=== PATIENT | female | born 1975 ===

== ENCOUNTER 2017-04-22 18:24 | Emergency (ER) | payer OTHER ==
[2017-04-22 18:29] VITALS: BMI 21.8
[2017-04-22 18:30] VITALS: BP 145/87; RESP 18
[2017-04-22] MEDS ORDERED: DiphenhydrAMINE 50 mg/ml Inj IVP STA (18:40)
--- NOTE | 2017-04-22 20:49 | ED PDOC ---
Arrival/HPI - General Chief Complaint: Allergic Reaction Time Seen by Provider: 04/22/17 18:36 Historian: Patient - History of Present Illness Narrative History of Present Illness (Text): 04/22/17 21:20 41yo female who was biba for complaint of tongue swelling, difficulty with breathing since this evening. Notes eating strawberries earlier today and she is allergic to it. She denies rash, chest pain, diaphoresis, focal weakness, any other inciting factors. Past Medical History - Provider Review Nursing Documentation Reviewed: Yes - Cardiac Hx Cardiac Disorders: No - Pulmonary Hx Respiratory Disorders: No - Neurological Hx Neurological Disorder: No - HEENT Hx HEENT Disorder: No - Renal Hx Renal Disorder: No - Endocrine/Metabolic Hx Endocrine Disorders: No - Hematological/Oncological Hx Blood Disorders: No - Integumentary Hx Dermatological Disorder: No - Musculoskeletal/Rheumatological Hx Musculoskeletal Disorders: No - Gastrointestinal Hx Gastrointestinal Disorders: No - Genitourinary/Gynecological Hx Genitourinary Disorders: No - Psychiatric Hx Psychophysiologic Disorder: No Hx Substance Use: No Family/Social History - Physician Review Nursing Documentation Reviewed: Yes Family/Social History: Unknown Family HX Smoking Status: Never Smoked Hx Alcohol Use: No Hx Substance Use: No Allergies/Home Meds Allergies/Adverse Reactions: Allergies shellfish derived Allergy (Verified 04/22/17 18:29) ANAPHYLAXIS strawberry Allergy (Verified 04/22/17 18:29) ANAPHYLAXIS Review of Systems - Physician Review All systems were reviewed & negative as marked: Yes - Review of Systems Constitutional: Normal Eyes: Normal ENT: Other (Tongue swelling) Respiratory: SOB Cardiovascular: Normal Gastrointestinal: Normal Genitourinary Female: Normal Musculoskeletal: Normal Skin: Normal Neurological: Normal Endocrine: Normal Hemo/Lymphatic: Normal Psychiatric: Normal Physical Exam Vital Signs Reviewed: Yes Vital Signs Temp Pulse Resp BP Pulse Ox 04/22/17 21:56 18 99 04/22/17 21:30 98.0 F 99 H 18 99 04/22/17 18:34 97 H 18 145/87 100 04/22/17 18:29 98.1 F 109 H 18 145/87 98 Temperature: Afebrile Blood Pressure: Normal Pulse: Tachycardic Respiratory Rate: Normal Appearance: Positive for: Well-Appearing, Non-Toxic, Comfortable Pain Distress: None Mental Status: Positive for: Alert and Oriented X 3 - Systems Exam Head: Present: Atraumatic, Normocephalic Pupils: Present: PERRL Extroacular Muscles: Present: EOMI Conjunctiva: Present: Normal Mouth: Present: Moist Mucous Membranes, Normal Lips. No: Trismus Pharnyx: No: Strider Neck: Present: Normal Range of Motion Respiratory/Chest: Present: Clear to Auscultation, Good Air Exchange. No: Respiratory Distress, Accessory Muscle Use, Wheezes, Decreased Breath Sounds, Rales, Retracting, Rhonchi Cardiovascular: Present: Regular Rate and Rhythm, Normal S1, S2. No: Murmurs Abdomen: Present: Normal Bowel Sounds. No: Tenderness, Distention, Peritoneal Signs Back: Present: Normal Inspection Upper Extremity: Present: Normal Inspection. No: Cyanosis, Edema Lower Extremity: Present: Normal Inspection. No: Edema Neurological: Present: GCS=15, CN II-XII Intact, Speech Normal Skin: Present: Warm, Dry, Normal Color. No: Rashes Psychiatric: Present: Alert, Oriented x 3, Normal Insight, Normal Concentration Medical Decision Making ED Course and Treatment: 04/22/17 21:23 PT presented for stated history. On re evaluation s/p medication she notes that her symptoms resolved. Requesting to be DC home. Her VS improved. she will be DC home with a rx of prednsione and Benadryl. Referred to her PMD. TRT ED for any new or worsening symptoms. - Medication Orders Current Medication Orders: Discontinued Medications Acetaminophen (Tylenol 325mg Tab) 975 mg PO STAT STA Stop: 04/22/17 21:55 Diphenhydramine HCl (Benadryl) 25 mg IVP STAT STA Stop: 04/22/17 18:41 Last Admin: 04/22/17 18:58 Dose: 25 mg IVP Administration Document 04/22/17 18:58 [email or web address] (Rec: 04/22/17 18:58 [email or web address] [email or web address]) Charges for Administration # of IVP Administrations 1 Famotidine (Pepcid) 20 mg IVP STAT STA Stop: 04/22/17 18:41 Last Admin: 04/22/17 18:59 Dose: 20 mg IVP Administration Document 04/22/17 18:59 [email or web address] (Rec: 04/22/17 18:59 [email or web address] [email or web address]) Charges for Administration # of IVP Administrations 1 Methylprednisolone (Solu-Medrol) 125 mg IVP STAT STA Stop: 04/22/17 18:41 Last Admin: 04/22/17 18:59 Dose: 125 mg IVP Administration Document 04/22/17 18:59 [email or web address] (Rec: 04/22/17 18:59 [email or web address] [email or web address]) Charges for Administration # of IVP Administrations 1 Disposition/Present on Arrival - Present on Arrival Any Indicators Present on Arrival: No History of DVT/PE: No History of Uncontrolled Diabetes: No Urinary Catheter: No History of Decub. Ulcer: No History Surgical Site Infection Following: None - Disposition Have Diagnosis and Disposition been Completed?: Yes Diagnosis: Allergic reaction Disposition: HOME/ ROUTINE Disposition Time: 21:25 Patient Plan: Discharge Condition: STABLE Discharge Instructions (ExitCare): Urticaria (ED) Additional Instructions: Follow up with your doctor Return to ED for any new or worsening symptoms Prescriptions: DiphenhydrAMINE [Benadryl] 25 mg PO Q4 #20 cap predniSONE [Prednisone] 20 mg PO DAILY #4 tab Referrals: PCP,NO [Primary Care Provider] - Follow up with primary [facility] [Outside] - Follow up with primary Forms: [employer] (Malagasy)
[2017-04-22 21:56] VITALS: PULSE 99; TEMP 98; O2SAT 99
== END 2017-04-22 21:50 | disposition home or self-care (01) ==
LOC: ED 18:24
DX: T78.40XA Allergy, unspecified, initial encounter (principal)
CPT/HCPCS: 96374; 96375; 99283; J1200; J2930

== ENCOUNTER 2017-05-13 23:12 | Emergency (ER) | payer OTHER ==
[2017-05-13 23:12] VITALS: BMI 21.8
--- NOTE | 2017-05-13 23:40 | ED PDOC ---
Arrival/HPI - General Chief Complaint: Chest Pain Time Seen by Provider: 05/13/17 23:28 Historian: Patient - History of Present Illness Narrative History of Present Illness (Text): 05/13/17 23:35 Bettina Gay is a 41 year old female, denies any significant past medical history, who presents to the Emergency department accompanied by spouse complaining of chest pain. Patient states she has been experiencing chest tightness radiating to her right shoulder for the past few days.States it hurts when pressing on her chest. Patient notes she has experienced similar symptoms in the past and had a stress test performed by her nnps on 05/11/2017, which was negative. Patient denies any tobacco abuse, fever, chills, cough, shortness of breath, nausea, vomiting, neck pain, headache, dizziness, or any other complaints. No PMD Time/Duration: Other (few days) Symptom Onset: Gradual Symptom Course: Intermittent Quality: Tightness Activities at Onset: Light Context: Home Past Medical History - Provider Review Nursing Documentation Reviewed: Yes - Cardiac Hx Cardiac Disorders: No - Pulmonary Hx Respiratory Disorders: No - Neurological Hx Neurological Disorder: No - HEENT Hx HEENT Disorder: No - Renal Hx Renal Disorder: No - Endocrine/Metabolic Hx Endocrine Disorders: No - Hematological/Oncological Hx Blood Disorders: No - Integumentary Hx Dermatological Disorder: No - Musculoskeletal/Rheumatological Hx Musculoskeletal Disorders: No - Gastrointestinal Hx Gastrointestinal Disorders: No - Genitourinary/Gynecological Hx Genitourinary Disorders: No - Psychiatric Hx Psychophysiologic Disorder: No Hx Substance Use: No Family/Social History - Physician Review Nursing Documentation Reviewed: Yes Family/Social History: Unknown Family HX Smoking Status: Never Smoked Hx Alcohol Use: No Hx Substance Use: No Allergies/Home Meds Allergies/Adverse Reactions: Allergies shellfish derived Allergy (Verified 04/22/17 18:29) ANAPHYLAXIS strawberry Allergy (Verified 04/22/17 18:29) ANAPHYLAXIS Home Medications: Home Meds Medication Instructions Recorded Confirmed No Known Home Med 05/13/17 05/13/17 Review of Systems - Physician Review All systems were reviewed & negative as marked: Yes - Review of Systems Constitutional: Normal. absent: Fevers Eyes: Normal ENT: Normal Respiratory: Normal. absent: SOB, Cough Cardiovascular: Chest Pain Gastrointestinal: Normal. absent: Abdominal Pain, Diarrhea, Nausea, Vomiting Genitourinary Female: Normal. absent: Dysuria, Frequency, Hematuria, Urine Output Changes Musculoskeletal: absent: Back Pain, Neck Pain Skin: Normal. absent: Rash Neurological: Normal. absent: Headache, Dizziness Endocrine: Normal Hemo/Lymphatic: Normal Psychiatric: Normal Physical Exam Vital Signs Reviewed: Yes Vital Signs Temp Pulse Resp BP Pulse Ox 05/14/17 01:08 81 17 105/65 96 05/13/17 23:36 98.0 F 109 H 18 148/95 H 96 Temperature: Afebrile Blood Pressure: Normal Pulse: Regular Respiratory Rate: Normal Appearance: Positive for: Well-Appearing, Non-Toxic, Comfortable Pain Distress: None Mental Status: Positive for: Alert and Oriented X 3 - Systems Exam Head: Present: Atraumatic, Normocephalic Pupils: Present: PERRL Extroacular Muscles: Present: EOMI Conjunctiva: Present: Normal Mouth: Present: Moist Mucous Membranes Neck: Present: Normal Range of Motion Respiratory/Chest: Present: Clear to Auscultation, Good Air Exchange, Tender to Palpation ( anterior chest). No: Respiratory Distress, Accessory Muscle Use Cardiovascular: Present: Regular Rate and Rhythm, Normal S1, S2. No: Murmurs Abdomen: Present: Normal Bowel Sounds. No: Tenderness, Distention, Peritoneal Signs Back: Present: Normal Inspection Upper Extremity: Present: Normal Inspection. No: Cyanosis, Edema Lower Extremity: Present: Normal Inspection. No: Edema Neurological: Present: GCS=15, CN II-XII Intact, Speech Normal Skin: Present: Warm, Dry, Normal Color. No: Rashes Psychiatric: Present: Alert, Oriented x 3, Normal Insight, Normal Concentration Medical Decision Making ED Course and Treatment: 05/13/17 23:35 Impression: 41 year old female complaining of chest tightness radiating to right shoulder for past few days. Plan: -- EKG -- Chest X-ray -- Labs, cardiac enzymes, D-dimer -- Reassess and disposition Progress Notes: Reviewed EKG, NSR at 71 bpm. Non-specific T-wave changes. 05/14/17 00:49 Chest X-ray reviewed, shows no acute processes. 05/14/17 01:31 Labs noted, D-dimer: 291. VQ Lung Perfusion Scan ordered. 05/14/17 05:00 Reviewed VQ Lung Perfusion Scan, shows: Ventilation: There is tracer uptake within the GI tract. Tracer retention is noted in the major airways. Perfusion: Unremarkable. No perfusion defects. Recent chest x-ray from May 13, 2017 at 2358 hrs. demonstrate no active disease. IMPRESSION: No scintigraphic evidence for pulmonary embolus. 05/14/17 05:05 Pt. states she had relief of her discomfort in the ED following treatment. - Lab Interpretations Lab Results: 05/13/17 11:48 05/13/17 11:48 Lab Results 05/13/17 11:48: D-Dimer, Quantitative 291 H 05/13/17 11:48: WBC 10.2, RBC 4.03, Hgb 13.2, Hct 38.7, MCV 96.0, MCH 32.8, MCHC 34.1, RDW 12.9, Plt Count 293, MPV 9.2 05/13/17 11:48: Sodium 139, Potassium 4.1, Chloride 106, Carbon Dioxide 22, Anion Gap 16, BUN 13, Creatinine 0.8, Est GFR ( Amer) > 60, Est GFR (Non- Af Amer) > 60, Random Glucose 99, Calcium 9.8, Total Bilirubin 0.7, AST 31, ALT 28, Alkaline Phosphatase 55, Lactate Dehydrogenase 401, Total Creatine Kinase 90 , Troponin I < 0.01, Total Protein 7.6, Albumin 4.5, Globulin 3.2, Albumin/ Globulin Ratio 1.4 05/13/17 11:48: PT 11.4, INR 1.00, APTT 29.2 I have reviewed the lab results: Yes - RAD Interpretation Radiology Orders: 05/13/17 23:36 CHEST PORTABLE [RAD] Stat 05/14/17 01:31 LUNG PERF & VENT SCAN [NM] Stat [employer] Technical Director: ED Physician, Radiologist - EKG Interpretation Interpreted by ED Physician: Yes Type: 12 lead EKG - Scribe Statement The provider has reviewed the documentation as recorded by the Tracy Finch Provider Scribe Attestation: All medical record entries made by the Scribe were at my direction and personally dictated by me. I have reviewed the chart and agree that the record accurately reflects my personal performance of the history, physical exam, medical decision making, and the department course for this patient. I have also personally directed, reviewed, and agree with the discharge instructions and disposition. Disposition/Present on Arrival - Present on Arrival Any Indicators Present on Arrival: No History of DVT/PE: No History of Uncontrolled Diabetes: No Urinary Catheter: No History of Decub. Ulcer: No History Surgical Site Infection Following: None - Disposition Have Diagnosis and Disposition been Completed?: Yes Diagnosis: Musculoskeletal chest pain Disposition: HOME/ ROUTINE Disposition Time: 05:06 Patient Plan: Discharge Condition: GOOD Discharge Instructions (ExitCare): Chest Pain (ED) Additional Instructions: Rest/no strenuous physical activity/advil as directed/follow up with your doctor this week Forms: [employer] [facility] (Omani)
[2017-05-14 00:12] LABS: HEMOGLOBIN 13.2 g/dL (12.0-16.0); RBC 4.03 10^6/uL (3.5-6.1); WHITE BLOOD COUNT 10.2 10^3/ul (4.5-11.0)
[2017-05-14 00:13] LABS: MEAN CORPUSCULAR HEMOGLOBIN 32.8 pg (25.0-35.0); MEAN CORPUSCULAR HGB CONC 34.1 g/dl (31.0-37.0); MEAN PLATELET VOLUME 9.2 fl (7.0-11.0); RED CELL DISTRIBUTION WIDTH 12.9 % (11.5-14.5)
[2017-05-14 00:16] LABS: ALB/GLOB RATIO 1.4 (1.1-1.8); ALBUMIN 4.5 g/dL (3.0-4.8); ALT/SGPT 28 U/L (7-56); AST/SGOT 31 U/L (14-36); BLOOD UREA NITROGEN 13 mg/dL (7-21); CALCIUM 9.8 mg/dL (8.4-10.5); GFR AFRICAN-AMERICAN > 60; GFR NON-AFRICAN AMERICAN > 60
[2017-05-14 00:28] LABS: TROPONIN I < 0.01 ng/mL
[2017-05-14 01:01] LABS: PROTHROMBIN TIME 11.4 SECONDS (9.4-12.5)
[2017-05-14 01:02] LABS: PARTIAL THROMBOPLASTIN TIME 29.2 Seconds (25.1-36.5)
[2017-05-14 01:09] VITALS: RESP 17
[2017-05-14 05:16] VITALS: BP 132/83; PULSE 84; TEMP 98.2; O2SAT 98
--- NOTE | 2017-05-14 08:20 | NM ---
COMPARISON: Chest x-ray 05/13/2017 TECHNIQUE: 30.0 mCi technetium 99-m DTPA inhalation 2.3 mCI technetium 99-m MAA administered intravenously. FINDINGS: VENTILATION COMPONENT: Normal. PERFUSION COMPONENT: Normal. The report concurs with the preliminary [facility] report IMPRESSION: Lowprobability ventilation perfusion scan for pulmonary embolism.
--- NOTE | 2017-05-14 08:44 | RAD ---
HISTORY: pain COMPARISON: No prior. FINDINGS: LUNGS: No active pulmonary disease. PLEURA: No significant pleural effusion identified, no pneumothorax apparent. CARDIOVASCULAR: Normal. OSSEOUS STRUCTURES: No significant abnormalities. VISUALIZED UPPER ABDOMEN: Normal. OTHER FINDINGS: None. IMPRESSION: No active disease.
--- NOTE | 2017-05-16 10:21 | CARD ---
APPROVED REPORT EKG Measurement Heart [id number] <Conclusion> Normal sinus rhythm Possible Left atrial enlargement Borderline ECG
== END 2017-05-14 05:16 | disposition home or self-care (01) ==
LOC: ED 23:12
DX: R07.89 Other chest pain (principal)